=== PATIENT | female | born 1965 | race Caucasian/White ===

== ENCOUNTER 2017-11-05 22:42 | Emergency (ER) | payer BC, OTHER ==
[~2017-11-05] VITALS: Ht 157.5 cm; Wt 67.1 kg
[2017-11-05 22:51] VITALS: BP_SYST 118
--- NOTE | 2017-11-05 23:22 | NUR ---
Patient states she wants to be leave without being seen by physician due to waiting too long. Patient informed that patient has been triaged and patient's are seen based on severity. Patient still states she is leaving. Charge nurse and MD informed.
== END 2017-11-05 23:22 | disposition left against medical advice (07) ==
LOC: SED 22:42
DX: R10.9 Unspecified abdominal pain (principal); Z53.21 Procedure and treatment not carried out due to patient leaving prior to being seen by health care provider